=== PATIENT | male | born 1970 | race Two or more races ===

== ENCOUNTER 2018-02-03 21:18 | Emergency (ER) | payer BC, MEDICAID ==
[~2018-02-03] VITALS: Ht 165.1 cm; Wt 72.6 kg
[~2018-02-03 21:18] MED LIST: BACTRIM DS TAB1 EAC1 ORAL; TRAMADOL HCL50 MG ORAL
--- NOTE | 2018-02-03 21:39 | Emergency Room Report ---
History of Present Illness General Chief Complaint: Back Pain-No Injury Source: Patient, Medical Record Present Illness HPI This is a 47-year-old male with a history of kidney stone and 2015. He was able to pass it without a problem. He presents with chief complaint of right lower quadrant pain. On Sunday, 2 days ago, he had abdominal pain and hematuria. He had some leftover Ultram which she took. He came in today because he complaining of fever started today and also constipation. [place] little dizzy when he stands up. No nausea no vomiting. No diaphoresis. No diarrhea. Pain is better. No dysuria or hematuria. Allergies: Coded Allergies: No Known Allergies (Unverified , 03/03/15) Patient History Past Medical History: see triage record, old chart reviewed Past Surgical History: none Pertinent Family History: none Social History: Denies: smoking Immunizations: other Reviewed Nursing Documentation: PMH: Agreed; PSxH: Agreed Nursing Documentation-PMH Hx Gastrointestinal Problems: Yes - prostate infection Review of Systems Constitutional: Reports: fever Eye: Denies: eye pain, blurred vision ENT: Denies: ear pain, nose congestion, throat swelling Respiratory: Denies: cough, shortness of breath Cardiovascular: Denies: chest pain, palpitations Gastrointestinal: Reports: abdominal pain; Denies: diarrhea, nausea, vomiting Musculoskeletal: Denies: back pain, joint pain Skin: Denies: rash Neurological: Denies: headache, numbness Endocrine: Denies: increased thirst, increased urine Hematologic/Lymphatic: Denies: easy bruising All Other Systems: negative except mentioned in HPI Physical Exam Vital Signs Date Time Temp Pulse Resp B/P (MAP) Pulse Ox O2 Delivery O2 Flow Rate FiO2 02/03/18 21:21 98.3 78 16 147/84 96 Room Air 98.2 vitals normal Sp02 EP Interpretation: reviewed, normal General Appearance: well appearing, no apparent distress, alert Head: normocephalic, atraumatic Eyes: bilateral eye PERRL, bilateral eye EOMI ENT: hearing grossly normal, normal pharynx Neck: full range of motion, supple, no meningismus Respiratory: chest non-tender, lungs clear, normal breath sounds Cardiovascular #1: regular rate, rhythm, no murmur Gastrointestinal: normal bowel sounds, non tender, no mass, no organomegaly, no bruit, non-distended Musculoskeletal: back normal, gait/station normal, normal range of motion Psychiatric: mood/affect normal Skin: warm/dry Medical Decision Making Diagnostic Impression: Primary Impression: Ureteral calculus, right Additional Impression: Renal insufficiency ER Course Patient presents with a ureteral calculus with hydronephrosis. He has subjective fever but afebrile here. I gave him antibiotics secondary to perinephric stranding. No evidence of appendicitis. Unknown baseline kidney function. We'll discharge home with copies of his labs and CT scan. He will need to see a urologist. Because of insurance, he will need a referral from his primary care doctor. Explained this to patient and family and they express understanding. Pt is pain free. Lab Results Impression labs with elevated creatinine CT/MRI/US Diagnostic Results CT/MRI/US Diagnostic Results : Imaging Test Ordered: CT abdomen and pelvis. Impression Read by radiologist. Mild to moderate right-sided hydronephrosis and perinephric stranding. A 4 mm stone is seen in the proximal right ureter. Last Vital Signs Date Time Temp Pulse Resp B/P (MAP) Pulse Ox O2 Delivery O2 Flow Rate FiO2 02/03/18 21:21 98.3 78 16 147/84 96 Room Air 98.2 Status: improved Disposition: HOME, SELF-CARE Condition: Stable Scripts Cephalexin* (KEFLEX*) 500 Mg Capsule 500 MG ORAL TID, #21 CAP Prov: KIMBERLY ROPER M.D. 02/03/18 Tamsulosin Hcl (TAMSULOSIN HCL*) 0.4 Mg Cap.er.24h 0.4 MG ORAL BEDTIME, #30 CAP Prov: KIMBERLY ROPER M.D. 02/03/18 Hydrocodone/Acetaminophen 5-325* (HYDROCODONE/ACETAMINOPHEN 5-325*) 1 Each Tablet 1 TAB ORAL Q6H PRN for For Pain, #30 TAB 0 Refills Prov: KIMBERLY ROPER M.D. 02/03/18 Additional Instructions: Follow-up with your doctor in 2-3 days. You will need a referral to see a urologist. Return if symptom worsen. KIMBERLY ROPER M.D. Feb 03, 2018 21:39
[2018-02-03] MEDS ORDERED: Acetaminophen 500mg (ES) tab ORAL ONE (21:45)
[2018-02-03] MEDS ORDERED: cefTRIAXone 1 GM in NS 55 ML IVPB ONE (21:45)
[2018-02-03 22:30] LABS: APPEARANCE,URINE CLEAR; BILIRUBIN, URINE NEGATIVE (NEGATIVE); COLOR,URINE PALE YELLOW; GLUCOSE, URINE (UA) NEGATIVE (NEGATIVE); KETONES,URINE NEGATIVE (NEGATIVE); LEUKOCYTE ESTERASE ,URINE NEGATIVE (NEGATIVE); NITRITE,URINE NEGATIVE (NEGATIVE); PH,URINE 6 (4.5-8.0); PROTEIN,URINE NEGATIVE (NEGATIVE); UROBILINOGEN,URINE NORMAL MG/DL (0.0-1.0)
[2018-02-03 22:32] LABS: BASOPHILS % (AUTO) 0.8 % (0.0-2.0); EOSINOPHILS % (AUTO) 0.1 % (0.0-3.0); HEMATOCRIT 44.9 % (42.0-52.0); LYMPHOCYTES % (AUTO) 11.9 % (20.0-45.0); MEAN CORPUSCULAR VOLUME 86 FL (80-99); MONOCYTES % (AUTO) 7.9 % (1.0-10.0); NEUTROPHILS % (AUTO) 79.4 % (45.0-75.0); PLATELET COUNT 186 K/UL (150-450); RED BLOOD COUNT 5.24 M/UL (4.70-6.10); RED CELL DISTRIBUTION WIDTH 10.6 % (11.6-14.8); WHITE BLOOD COUNT 12.1 K/UL (4.8-10.8)
[2018-02-03 22:48] LABS: ANION GAP 5 mmol/L (5-15); BLOOD UREA NITROGEN 25 mg/dL (7-18); CALCIUM 9.5 MG/DL (8.5-10.1); CARBON DIOXIDE 31 MMOL/L (21-32); CHLORIDE 100 MMOL/L (98-107); POTASSIUM 3.9 MMOL/L (3.5-5.1); SODIUM 135 MMOL/L (136-145)
[2018-02-03 22:59] VITALS: BP 132/79
[2018-02-03] MEDS ORDERED: CEPHALEXIN500 MG ORAL (23:07)
[2018-02-03] MEDS ORDERED: TAMSULOSIN HCL0.4 MG ORAL (23:07)
[2018-02-03] MEDS ORDERED: HYDROCODON-ACE1 EA15 ORAL (23:07)
[2018-02-03 23:35] VITALS: BP 132/79
--- NOTE | 2018-02-04 08:57 | Diagnostic Imaging Report ---
Indication: Abdominal pain Technique: Spiral acquisitions obtained through the abdomen and pelvis. No oral contrast utilized, per emergency room physician request No IV contrast utilized, per referring physician request.. Multiplanar reconstructions were generated. Total dose length product 718.56 mGycm. CTDIvol(s) 13.38 mGy. Dose reduction achieved using automated exposure control Comparison: 03/03/2015 Findings: There is a 3 x 4 mm calculus in the proximal right ureter. This results in mild right hydronephrosis. Previously demonstrated distal right ureteral calculus is not evident currently. Degree of hydronephrosis is similar to the prior exam, however. No intrarenal calculi are demonstrated. No left renal ureteral calculi or left hydronephrosis or hydroureter are evident. Lack of IV contrast limits assessment of the renal parenchyma. Left renal cyst is again noted. Lack of IV contrast limits assessment of the other solid organs. Liver, gallbladder, bile ducts, pancreas, spleen, adrenals are unremarkable. No retroperitoneal or mesenteric mass or adenopathy. No pelvic mass or adenopathy. Bladder, prostate, seminal vesicles are unremarkable. There are tiny descending colon diverticula noted. No evidence of diverticulitis. The appendix is only questionably visualized. No evidence of acute appendicitis. No small bowel distention. No free or loculated intraperitoneal air or fluid. There is a small sliding-type hiatal hernia. Stomach and duodenum are otherwise unremarkable. The included lung bases demonstrate posterior dependent atelectatic changes. There is a 3 mm subpleural nodule in the right posterior lateral lower lobe which is unchanged from previous. The bones demonstrate minimal degenerative facet arthrosis. Impression: Positive for 4 mm right proximal ureteral calculus,, resulting in hydronephrosis and hydroureter Colonic diverticulosis. No evidence of diverticulitis Stable and therefore presumed benign 3 mm right lung nodule Other findings as noted, including degenerative facet arthrosis, posterior dependent pulmonary atelectatic changes, small sliding-type hiatal hernia, left renal cyst This agrees with the preliminary interpretation provided overnight by [employer] teleradiology service. The CT scanner at [facility] is accredited by the [employer] and the scans are performed using protocols designed to limit radiation exposure to as low as reasonably achievable to attain images of sufficient resolution adequate for diagnostic evaluation.
== END 2018-02-03 23:35 | disposition home or self-care (01) ==
LOC: EMR 22:00
DX: N20.1 Calculus of ureter (principal); Z87.442 Personal history of urinary calculi; N28.9 Disorder of kidney and ureter, unspecified
CPT/HCPCS: 36415; 74176; 80048; 81003; 83605; 85025; 87040; 96360; 96365; 99284; J0696